=== PATIENT | female | born 1955 | race Caucasian/White ===

== ENCOUNTER 2024-03-30 05:21 | Emergency (ER) | payer OTHER, SELFPAY ==
[2024-03-30 05:23] VITALS: BP 130/84
[2024-03-30] MEDS: MOTRIN 400 MG PO (06:50)
[2024-03-30] MEDS: ZOFRAN ODT (ORALLY DISINTEGRATING) 4 MG PO (06:51)
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
[2024-03-30 07:47] VITALS: BP 121/77
== END 2024-03-30 07:55 | disposition home or self-care (01) ==
LOC: EMR 05:21
PROVIDERS: EMERGENCY PHYSICIAN Emergency Medicine; FAMILY PHYSICIAN Family Medicine
DX: S06.0X0A Concussion without loss of consciousness, initial encounter (principal); S13.4XXA Sprain of ligaments of cervical spine, initial encounter; S00.83XA Contusion of other part of head, initial encounter; R51.9 Headache, unspecified; R11.2 Nausea with vomiting, unspecified; M54.9 Dorsalgia, unspecified; V49.50XA Passenger injured in collision with unspecified motor vehicles in traffic accident, initial encounter; Y92.410 Unspecified street and highway as the place of occurrence of the external cause; R03.0 Elevated blood-pressure reading, without diagnosis of hypertension; E78.00 Pure hypercholesterolemia, unspecified; K21.9 Gastro-esophageal reflux disease without esophagitis; G89.29 Other chronic pain; Z86.16 Personal history of COVID-19
CPT/HCPCS: 99284; 70450; 72125